=== PATIENT | female | born 1945 | race Caucasian/White ===

== ENCOUNTER 2020-04-17 05:27 | Inpatient (IN) ==
[2020-04-17] MEDS ORDERED: NS 0.9% 1000 ml BAG 1,000 ML IV ONE ×2 (05:59→10:27)
[2020-04-17 07:06] LABS: ABS Lymphocytes 1.4 10^3/ul (1.0-4.8); ABS Monocytes 0.6 10^3/ul (0-0.8); Eosinophil % 0.7 %; Hematocrit 38 % (35-47); Hemoglobin 12.9 g/dL (12.0-16.0); Lymphocyte % 20.5 %; Mean Corpuscular HGB Conc 34 g/dL (31-36); Mean Corpuscular Hemoglobin 31 pg (27-31); Mean Corpuscular Volume 92 fL (80-97); Mean Platelet Volume 7.7 fL (7.4-10.4); Platelet Count 234 10^3/uL (150-450); Red Blood Count 4.14 10^6 /uL (3.70-4.87); Red Cell Distribution Width 14 % (10-15); White Blood Count 6.6 10^3/uL (3.5-10.8)
[2020-04-17 07:30] LABS: Albumin 3.8 g/dL (3.2-5.2); Albumin/Globulin Ratio 1.2 (1-3); BUN/Creatinine Ratio 26.5 (8-20); EGFR African American 101.5 (>60); EGFR Non-African American 83.9 (>60); Globulin 3.1 g/dL (2-4); Potassium 3.8 mmol/L (3.5-5.0); Total Bilirubin 0.4 mg/dL (0.2-1.0); Total Protein 6.9 g/dL (6.4-8.9)
[2020-04-17 07:37] LABS: Troponin I 0.04 ng/mL (<0.03)
[2020-04-17 08:08] LABS: TSH (Thyroid Stimulating Horm) 1.45 mcIU/mL (0.34-5.60)
[2020-04-17 09:03] LABS: Urine Appearance Cloudy; Urine Bilirubin Negative (Negative); Urine Blood 1+ (Negative); Urine Color Yellow; Urine Glucose Negative (Negative); Urine Ketones Negative (Negative); Urine Nitrite Positive (Negative); Urine Protein 1+(30 mg/dL) (Negative); Urine Specific Gravity 1.025 (1.010-1.030); Urine Urobilinogen Negative (Negative)
[2020-04-17 09:08] LABS: Urine Bacteria 3+ (Absent); Urine Red Blood Cell 2+(6-10/hpf) (Absent); Urine Squamous Epithelial Cell Present (Absent); Urine White Blood Cell 1+(6-10/hpf) (Absent)
[2020-04-17 10:26] LABS: Troponin I 0.07 ng/mL (<0.03)
[2020-04-17] MEDS ORDERED: Dextrose 50% Syringe 50 ml 25 GM/50 ML SYRINGE IV PUSH PRN (11:14)
[2020-04-17 11:54] LABS: ABS Eosinophils 0.1 10^3/ul (0-0.6); ABS Lymphocytes 1.5 10^3/ul (1.0-4.8); ABS Monocytes 0.7 10^3/ul (0-0.8); Eosinophil % 1.5 %; Hematocrit 36 % (35-47); Lymphocyte % 24.4 %; Mean Corpuscular HGB Conc 33 g/dL (31-36); Mean Corpuscular Hemoglobin 31 pg (27-31); Mean Corpuscular Volume 93 fL (80-97); Nucleated Red Blood Cells % 0.1; Platelet Count 228 10^3/uL (150-450); Red Blood Count 3.88 10^6 /uL (3.70-4.87); Red Cell Distribution Width 15 % (10-15); White Blood Count 6.1 10^3/uL (3.5-10.8)
[2020-04-17 12:02] LABS: Activated Partial Thrombo Time 41.7 seconds (26.0-38.0); INR 1.03 (0.82-1.09)
[2020-04-17 12:23] LABS: EGFR African American 106.9 (>60); EGFR Non-African American 88.4 (>60)
[2020-04-17] MEDS: Heparin 5000 UNITS/ML 1 mL VIAL SUBCUT SCH ×2 (14:14→22:08)
[2020-04-17 15:18] LABS: Troponin I 0.03 ng/mL (<0.03)
[2020-04-17 18:22] LABS: Troponin I 0.03 ng/mL (<0.03)
[2020-04-17] MEDS: Mometasone 220 MCG MDI INH SCH (19:10)
[2020-04-17] MEDS: Ciprofloxacin 400mg IVPREMIX 400 MG/200 ML BAG IVPB SCH (22:09)
[2020-04-18] MEDS: Heparin 5000 UNITS/ML 1 mL VIAL SUBCUT SCH ×2 (05:39→12:43)
[2020-04-18] MEDS: Mometasone 220 MCG MDI INH SCH ×2 (08:21→19:08)
[2020-04-18] MEDS: Aspirin EC 81 mg TAB.EC (enteric coated) PO SCH (09:48)
[2020-04-18] MEDS: Insulin GLARGINE 100 un/ml 10 ml VIAL SUBCUT SCH (09:50)
[2020-04-18] MEDS: Ciprofloxacin 400mg IVPREMIX 400 MG/200 ML BAG IVPB SCH ×2 (09:52→22:30)
[2020-04-18] MEDS ORDERED: NS 0.9% 1000 ML - LV 1,000 ML/1,000 ML IV.FLUID IV ONE (14:45)
[2020-04-18] MEDS: NS 0.9% 1000 ml BAG 1,000 ML IV SCH (18:34)
[2020-04-18] MEDS: Nystatin TOP POWDER 15 GM BTL TOPICAL SCH (22:30)
[2020-04-19] MEDS: Heparin 5000 UNITS/ML 1 mL VIAL SUBCUT SCH ×4 (00:11→21:26)
[2020-04-19 05:28] LABS: ABS Eosinophils 0.4 10^3/ul (0-0.6); ABS Lymphocytes 1.1 10^3/ul (1.0-4.8); ABS Monocytes 0.5 10^3/ul (0-0.8); Eosinophil % 8.5 %; Hematocrit 36 % (35-47); Hemoglobin 12.1 g/dL (12.0-16.0); Lymphocyte % 22.1 %; Mean Corpuscular HGB Conc 34 g/dL (31-36); Mean Corpuscular Hemoglobin 32 pg (27-31); Mean Corpuscular Volume 93 fL (80-97); Mean Platelet Volume 7.4 fL (7.4-10.4); Platelet Count 209 10^3/uL (150-450); Red Blood Count 3.85 10^6 /uL (3.70-4.87); Red Cell Distribution Width 15 % (10-15); White Blood Count 4.8 10^3/uL (3.5-10.8)
[2020-04-19 05:43] LABS: BUN/Creatinine Ratio 18.1 (8-20); Calcium 8.4 mg/dL (8.6-10.3); EGFR Non-African American 78.5 (>60); Magnesium 1.6 mg/dL (1.9-2.7); Potassium 3.5 mmol/L (3.5-5.0)
[2020-04-19] MEDS ORDERED: Magnesium Sulfate 2 gm BAG 2 GM/50 ML BAG IVPB ONE (08:01)
[2020-04-19] MEDS: Mometasone 220 MCG MDI INH SCH ×2 (08:11→19:12)
[2020-04-19] MEDS: Nystatin TOP POWDER 15 GM BTL TOPICAL SCH ×3 (08:22→21:26)
[2020-04-19] MEDS: Insulin GLARGINE 100 un/ml 10 ml VIAL SUBCUT SCH (08:24)
[2020-04-19] MEDS: Aspirin EC 81 mg TAB.EC (enteric coated) PO SCH (08:26)
[2020-04-19] MEDS: Ciprofloxacin 400mg IVPREMIX 400 MG/200 ML BAG IVPB SCH (08:30)
[2020-04-19] MEDS: NS 0.9% 1000 ml BAG 1,000 ML IV SCH (11:24)
[2020-04-19] MEDS ORDERED: Trimethop/Sulfamethox 800/160 TAB PO SCH (21:00)
[2020-04-19] MEDS: NITROFURANTOIN 100 MG PO SCH (21:25)
[2020-04-20 04:40] LABS: ABS Eosinophils 0.6 10^3/ul (0-0.6); ABS Monocytes 0.5 10^3/ul (0-0.8); Eosinophil % 12.8 %; Hematocrit 35 % (35-47); Lymphocyte % 22.7 %; Mean Corpuscular HGB Conc 34 g/dL (31-36); Mean Corpuscular Hemoglobin 32 pg (27-31); Mean Corpuscular Volume 92 fL (80-97); Mean Platelet Volume 7.9 fL (7.4-10.4); Nucleated Red Blood Cells % 0.1; Platelet Count 203 10^3/uL (150-450); Red Blood Count 3.81 10^6 /uL (3.70-4.87); Red Cell Distribution Width 15 % (10-15); White Blood Count 4.6 10^3/uL (3.5-10.8)
[2020-04-20] MEDS: Heparin 5000 UNITS/ML 1 mL VIAL SUBCUT SCH ×2 (05:48→14:24)
[2020-04-20] MEDS: Mometasone 220 MCG MDI INH SCH ×2 (08:10→19:49)
[2020-04-20] MEDS: NITROFURANTOIN 100 MG PO SCH ×2 (08:50→21:49)
[2020-04-20] MEDS: Aspirin EC 81 mg TAB.EC (enteric coated) PO SCH (08:52)
[2020-04-20] MEDS: Insulin GLARGINE 100 un/ml 10 ml VIAL SUBCUT SCH (08:54)
[2020-04-20] MEDS: Nystatin TOP POWDER 15 GM BTL TOPICAL SCH ×3 (08:59→22:42)
[2020-04-20] MEDS: Enoxaparin 40 MG/0.4 ML SYR SUBCUT SCH (21:49)
[2020-04-21] MEDS: Mometasone 220 MCG MDI INH SCH ×2 (07:34→20:29)
[2020-04-21] MEDS: Aspirin EC 81 mg TAB.EC (enteric coated) PO SCH (10:22)
[2020-04-21] MEDS: NITROFURANTOIN 100 MG PO SCH ×2 (10:23→20:32)
[2020-04-21] MEDS: Nystatin TOP POWDER 15 GM BTL TOPICAL SCH ×3 (10:38→20:33)
[2020-04-21] MEDS: Insulin GLARGINE 100 un/ml 10 ml VIAL SUBCUT SCH (10:38)
[2020-04-21] MEDS ORDERED: Diazepam INJ CARPUJECT 5 MG/ML IV ONE (15:31)
[2020-04-21] MEDS: Enoxaparin 40 MG/0.4 ML SYR SUBCUT SCH (20:33)
[2020-04-22] MEDS: Mometasone 220 MCG MDI INH SCH ×2 (07:06→19:27)
[2020-04-22] MEDS: Nystatin TOP POWDER 15 GM BTL TOPICAL SCH ×3 (08:09→21:52)
[2020-04-22] MEDS: Insulin GLARGINE 100 un/ml 10 ml VIAL SUBCUT SCH (08:09)
[2020-04-22] MEDS: Aspirin EC 81 mg TAB.EC (enteric coated) PO SCH (08:09)
[2020-04-22] MEDS: NITROFURANTOIN 100 MG PO SCH ×2 (08:09→21:51)
[2020-04-22 08:15] LABS: Albumin 3.3 g/dL (3.2-5.2); Calcium 8.7 mg/dL (8.6-10.3); EGFR African American 112.9 (>60); EGFR Non-African American 93.3 (>60); Globulin 3.2 g/dL (2-4); Total Bilirubin 0.3 mg/dL (0.2-1.0); Total Protein 6.5 g/dL (6.4-8.9)
[2020-04-22] MEDS: Enoxaparin 40 MG/0.4 ML SYR SUBCUT SCH (21:51)
[2020-04-23] MEDS: Mometasone 220 MCG MDI INH SCH (07:56)
[2020-04-23] MEDS: NITROFURANTOIN 100 MG PO SCH (08:44)
[2020-04-23] MEDS: Insulin GLARGINE 100 un/ml 10 ml VIAL SUBCUT SCH (08:44)
[2020-04-23] MEDS: Aspirin EC 81 mg TAB.EC (enteric coated) PO SCH (08:45)
[2020-04-23] MEDS: Nystatin TOP POWDER 15 GM BTL TOPICAL SCH (08:46)
[2020-04-23 11:35] VITALS: BP 116/71
== END 2020-04-23 14:30 | disposition home or self-care (01) | DRG 689 ==
LOC: ED 05:27 → MED 05:27 → OBSVTOIN 11:10 → MED 12:32
PROVIDERS: ADMIT Internal Medicine; ATTEND Internal Medicine

== ENCOUNTER 2023-03-31 10:14 | Observation (INO) ==
[2023-03-31 10:53] LABS: ABS Eosinophils 0.1 10^3/uL (0.0-0.5); ABS Lymphocytes 1.4 10^3/uL (1.0-4.8); ABS Monocytes 0.7 10^3/uL (0.0-0.9); ABS Neutrophils 4.4 10^3/uL (1.5-7.6); Hematocrit 36.2 % (35-45); Lymphocyte % 21.3 %; Mean Corpuscular Hemoglobin 30.3 pg (27-33); Mean Corpuscular Hgb Conc 33.1 g/dL (31-36); Mean Corpuscular Volume 91.5 fL (80-97); Mean Platelet Volume 8.1 fL (7.5-11.2); Platelet Count 229 10^3/uL (150-450); Red Blood Count 3.96 10^6/uL (3.63-4.92); Red Cell Distribution Width 14.8 % (12-17); White Blood Count 6.7 10^3/uL (3.8-11.8)
[2023-03-31 10:59] LABS: INR 1.06 (0.88-1.18)
[2023-03-31 11:19] LABS: Albumin 3.8 g/dL (3.2-5.2); Albumin/Globulin Ratio 1.1 (1-3); Calcium 9.3 mg/dL (8.6-10.3); Creatinine, Serum 2.8 mg/dL (0.51-0.95); Globulin 3.4 g/dL (2-4); Magnesium 1.6 mg/dL (1.9-2.7); Total Bilirubin 0.4 mg/dL (0.2-1.0); Total Protein 7.2 g/dL (6.4-8.9); eGFR CKD-EPI 16.7 (>60)
[2023-03-31] MEDS ORDERED: Lactated Ringers 1000 ml BAG 1,000 ML IV ONE (11:47)
[2023-03-31 11:58] LABS: TSH Ultra Thyroid Stim Horm 2.79 mcIU/mL (0.34-5.60)
[2023-03-31 12:21] LABS: High Sensitivity Troponin 1 Hr 14 pg/mL (<15)
[2023-03-31 12:49] LABS: Urine Appearance Cloudy; Urine Bilirubin Negative (Negative); Urine Blood 1+ (Negative); Urine Color Yellow; Urine Glucose Negative (Negative); Urine Ketones Negative (Negative); Urine Nitrite Negative (Negative); Urine Protein 1+(30 mg/dL) (Negative); Urine Specific Gravity 1.013 (1.002-1.030); Urine Urobilinogen Negative (Negative)
[2023-03-31 12:53] LABS: Urine Bacteria 3+ (Absent); Urine Red Blood Cell 2+(6-10/hpf) (Absent); Urine Squamous Epithelial Cell Present (Absent); Urine White Blood Cell 3+(>20/hpf) (Absent)
[2023-03-31 13:38] LABS: C Reactive Protein 12.05 mg/L (<8.01)
[2023-03-31] MEDS ORDERED: Magnesium Sulf 4 GM/100 ML IV 4,000 MG/100 ML BAG IVPB ONE (15:39)
[2023-03-31] MEDS: cefTRIAXone 1 gm/50 mL D5W 1 GM/50 ML BAG IV SCH (17:37)
[2023-03-31] MEDS: Enoxaparin 30 MG/0.3 ML SYR SUBCUT SCH (17:38)
[2023-03-31] MEDS ORDERED: Dextrose 50% Syringe 50 ml 25 GM/50 ML SYRINGE IV PUSH PRN (18:27)
[2023-03-31] MEDS: Nystatin TOP POWDER 15 GM BTL TOPICAL SCH (21:16)
[2023-04-01 05:51] LABS: Hematocrit 33.5 % (35-45); Hemoglobin 11.4 g/dL (11.5-14.3); Mean Corpuscular Hemoglobin 31.3 pg (27-33); Mean Corpuscular Volume 91.8 fL (80-97); Mean Platelet Volume 8.3 fL (7.5-11.2); Platelet Count 195 10^3/uL (150-450); Red Blood Count 3.65 10^6/uL (3.63-4.92); Red Cell Distribution Width 14.4 % (12-17); White Blood Count 4.9 10^3/uL (3.8-11.8)
[2023-04-01 06:13] LABS: Creatinine, Serum 1.36 mg/dL (0.51-0.95); Magnesium 2.5 mg/dL (1.9-2.7); Potassium 4.1 mmol/L (3.5-5.0); eGFR CKD-EPI 39.6 (>60)
[2023-04-01] MEDS: Nystatin TOP POWDER 15 GM BTL TOPICAL SCH ×3 (08:17→19:56)
[2023-04-01] MEDS: cefTRIAXone 1 gm/50 mL D5W 1 GM/50 ML BAG IV SCH (15:58)
[2023-04-01] MEDS: Enoxaparin 30 MG/0.3 ML SYR SUBCUT SCH (16:43)
[2023-04-02 05:57] LABS: Calcium 9.5 mg/dL (8.6-10.3); Creatinine, Serum 0.99 mg/dL (0.51-0.95); Potassium 4.5 mmol/L (3.5-5.0)
[2023-04-02] MEDS: Nystatin TOP POWDER 15 GM BTL TOPICAL SCH ×2 (07:15→14:53)
[2023-04-02 13:54] VITALS: BP 101/57
== END 2023-04-02 15:05 | disposition home or self-care (01) ==
LOC: EDHOLD 10:14 → ED 10:14 → SUATTDRO 13:59 → MED 15:36
PROVIDERS: ADMIT Internal Medicine; ATTEND Internal Medicine

== ENCOUNTER 2023-08-09 18:46 | Inpatient (IN) ==
[2023-08-09 20:40] LABS: Albumin 3.6 g/dL (3.2-5.2); Anion Gap 5 mmol/L (2-16); CO2 Carbon Dioxide 28 mmol/L (22-32); Calcium 9.5 mg/dL (8.6-10.3); Chloride 106 mmol/L (101-111); Potassium 4.5 mmol/L (3.5-5.0); Sodium 139 mmol/L (135-145); Total Bilirubin 0.3 mg/dL (0.2-1.0)
[2023-08-09 20:42] LABS: ABS Eosinophils 0.1 10^3/uL (0.0-0.5); ABS Lymphocytes 1.1 10^3/uL (1.0-4.8); ABS Monocytes 0.5 10^3/uL (0.0-0.9); ABS Neutrophils 5.9 10^3/uL (1.5-7.6); ABS Nucleated RBC 0.01 10^3/ul; Eosinophil % 1.2 %; Hematocrit 35.2 % (35-45); Hemoglobin 11.8 g/dL (11.5-14.3); Lymphocyte % 14.6 %; Mean Corpuscular Hemoglobin 30.6 pg (27-33); Mean Corpuscular Hgb Conc 33.6 g/dL (31-36); Mean Platelet Volume 8.2 fL (7.5-11.2); Nucleated Red Blood Cells % 0.1 %/100WBC (0.0-0.8); Platelet Count 225 10^3/uL (150-450); Red Blood Count 3.87 10^6/uL (3.63-4.92); Red Cell Distribution Width 14.7 % (12-17); White Blood Count 7.7 10^3/uL (3.8-11.8)
[2023-08-09 20:46] LABS: ALT 14 U/L (7-52); AST 18 U/L (13-39); Albumin/Globulin Ratio 1.1 (1-3); Alkaline Phosphatase 92 U/L (35-149); Blood Urea Nitrogen 23 mg/dL (6-24); Creatinine, Serum 0.88 mg/dL (0.51-0.95); Globulin 3.2 g/dL (2-4); Glucose 139 mg/dL (70-100); Total Protein 6.8 g/dL (6.4-8.9); eGFR CKD-EPI 66.4 (>60)
[2023-08-09 20:51] LABS: High Sens Troponin Baseline 58 pg/mL (<15)
[2023-08-09 21:06] LABS: Alcohol, S < 13 mg/dL (<13)
[2023-08-09 22:42] LABS: High Sensitivity Troponin 1 Hr 76 pg/mL (<15)
[2023-08-10 01:10] LABS: C Reactive Protein 13.71 mg/L (<8.01); Creatine Kinase 55 U/L (10-223)
[2023-08-10 01:53] LABS: High Sensitivity Troponin 3 Hr 86 pg/mL (<15)
[2023-08-10 01:57] LABS: Erythrocyte Sed Rate 49 mm/Hr (0-29)
[2023-08-10] MEDS ORDERED: Iodixanol (CONTRAST) 320 MG/ML 100 ML SDV IV SCH (02:33)
[2023-08-10] MEDS: Heparin 5000 UNITS/ML 1 mL VIAL IV SCH (03:42)
[2023-08-10] MEDS: Heparin DRIP 25,000 UNITS BAG 25,000 UNITS/500 ML BAG IV SCH (03:46)
[2023-08-10 05:35] LABS: ABS Eosinophils 0.3 10^3/uL (0.0-0.5); ABS Monocytes 0.5 10^3/uL (0.0-0.9); ABS Neutrophils 3.9 10^3/uL (1.5-7.6); ABS Nucleated RBC 0.01 10^3/ul; Eosinophil % 5.7 %; Hematocrit 33.4 % (35-45); Hemoglobin 11.2 g/dL (11.5-14.3); Lymphocyte % 16.9 %; Mean Corpuscular Hemoglobin 30.3 pg (27-33); Mean Corpuscular Hgb Conc 33.5 g/dL (31-36); Mean Corpuscular Volume 90.6 fL (80-97); Mean Platelet Volume 7.7 fL (7.5-11.2); Nucleated Red Blood Cells % 0.1 %/100WBC (0.0-0.8); Platelet Count 212 10^3/uL (150-450); Red Blood Count 3.69 10^6/uL (3.63-4.92); Red Cell Distribution Width 14.5 % (12-17); White Blood Count 5.7 10^3/uL (3.8-11.8)
[2023-08-10] MEDS ORDERED: cefTRIAXone 1 gm/50 mL D5W 1 GM/50 ML BAG IV ONE (05:55)
[2023-08-10] MEDS ORDERED: cefTRIAXone 2 gm/50 mL D5W 2 GM/50 ML BAG IV SCH (06:00)
[2023-08-10] MEDS ORDERED: cefTRIAXone 1 gm/50 mL D5W 1 GM/50 ML BAG IV SCH (06:00)
[2023-08-10 07:22] LABS: Calcium 8.7 mg/dL (8.6-10.3); Magnesium 1.6 mg/dL (1.9-2.7); Potassium 3.8 mmol/L (3.5-5.0)
[2023-08-10 07:28] LABS: Creatinine, Serum 0.74 mg/dL (0.51-0.95); eGFR CKD-EPI 81.7 (>60)
[2023-08-10] MEDS ORDERED: Magnesium Sulfate 2 gm BAG 2 GM/50 ML BAG IVPB ONE (07:39)
[2023-08-10] MEDS: metroNIDAZOLE IV 500 MG/100ML 500 MG/100 ML BAG IVPB SCH ×3 (07:43→22:07)
[2023-08-10] MEDS: Aspirin EC 81 mg TAB.EC (enteric coated) PO SCH (07:44)
[2023-08-10] MEDS ORDERED: Dextrose 50% Syringe 50 ml 25 GM/50 ML SYRINGE IV PUSH PRN ×2 (11:07→21:06)
[2023-08-10] MEDS ORDERED: Midazolam 2 mg/2 ml VIAL 1 mg/ml 2 ml VIAL (2 mg) ONE (15:16)
[2023-08-10] MEDS ORDERED: Lidocaine 2% PF 5 ML VIAL ONE (15:16)
[2023-08-10] MEDS ORDERED: Propofol 10 MG/ML 20 ML BTL ONE ×2 (15:16→15:57)
[2023-08-10] MEDS ORDERED: Phenylephrine 40 mcg/mL 10mL (400mcg) SYRINGE ONE (15:17)
[2023-08-11] MEDS ORDERED: NS 0.9% 500 ml BAG 500 ML IV ONE (03:41)
[2023-08-11] MEDS: cefTRIAXone 1 gm/50 mL D5W 1 GM/50 ML BAG IV SCH (05:09)
[2023-08-11] MEDS: metroNIDAZOLE IV 500 MG/100ML 500 MG/100 ML BAG IVPB SCH ×3 (06:09→23:50)
[2023-08-11 06:21] LABS: ABS Eosinophils 0.5 10^3/uL (0.0-0.5); ABS Lymphocytes 0.8 10^3/uL (1.0-4.8); ABS Monocytes 0.5 10^3/uL (0.0-0.9); Eosinophil % 9.7 %; Hematocrit 32.7 % (35-45); Lymphocyte % 17.4 %; Mean Corpuscular Hemoglobin 30.8 pg (27-33); Mean Corpuscular Hgb Conc 33.6 g/dL (31-36); Mean Corpuscular Volume 91.5 fL (80-97); Mean Platelet Volume 8.3 fL (7.5-11.2); Platelet Count 189 10^3/uL (150-450); Red Blood Count 3.57 10^6/uL (3.63-4.92); Red Cell Distribution Width 14.6 % (12-17); White Blood Count 4.8 10^3/uL (3.8-11.8)
[2023-08-11 06:43] LABS: Calcium 8.2 mg/dL (8.6-10.3); Creatinine, Serum 0.77 mg/dL (0.51-0.95); Magnesium 1.8 mg/dL (1.9-2.7); Phosphorus 3.1 mg/dL (2.5-5.0); Potassium 3.8 mmol/L (3.5-5.0); eGFR CKD-EPI 77.9 (>60)
[2023-08-11] MEDS ORDERED: Magnesium Sulfate 2 gm BAG 2 GM/50 ML BAG IVPB ONE (07:48)
[2023-08-11] MEDS ORDERED: Polyethylene Glycol 3350 17 GM PACKET PO PRN (08:33)
[2023-08-11] MEDS: Aspirin EC 81 mg TAB.EC (enteric coated) PO SCH (09:17)
[2023-08-11] MEDS: Lidocaine PATCH 4% TOPICAL PRN (18:05)
[2023-08-11] MEDS: Nystatin TOP POWDER 15 GM BTL TOPICAL SCH (23:49)
[2023-08-12] MEDS: Heparin 5000 UNITS/ML 1 mL VIAL IV SCH (00:41)
[2023-08-12] MEDS: Heparin DRIP 25,000 UNITS BAG 25,000 UNITS/500 ML BAG IV SCH ×2 (00:45→06:44)
[2023-08-12 02:53] LABS: Urine Appearance Clear; Urine Bilirubin Negative (Negative); Urine Blood Negative (Negative); Urine Color Yellow; Urine Glucose Negative (Negative); Urine Ketones Negative (Negative); Urine Nitrite Negative (Negative); Urine Protein Negative (Negative); Urine Specific Gravity 1.011 (1.002-1.030); Urine Urobilinogen Negative (Negative)
[2023-08-12] MEDS: cefTRIAXone 1 gm/50 mL D5W 1 GM/50 ML BAG IV SCH (05:34)
[2023-08-12] MEDS: metroNIDAZOLE IV 500 MG/100ML 500 MG/100 ML BAG IVPB SCH ×3 (06:19→21:15)
[2023-08-12 06:47] LABS: ABS Eosinophils 0.6 10^3/uL (0.0-0.5); ABS Lymphocytes 0.7 10^3/uL (1.0-4.8); ABS Monocytes 0.5 10^3/uL (0.0-0.9); ABS Neutrophils 3.7 10^3/uL (1.5-7.6); Eosinophil % 10.3 %; Hematocrit 33.1 % (35-45); Hemoglobin 11.2 g/dL (11.5-14.3); Lymphocyte % 13.2 %; Mean Corpuscular Hemoglobin 30.7 pg (27-33); Mean Corpuscular Hgb Conc 33.7 g/dL (31-36); Mean Corpuscular Volume 91.1 fL (80-97); Mean Platelet Volume 7.7 fL (7.5-11.2); Platelet Count 189 10^3/uL (150-450); Red Blood Count 3.64 10^6/uL (3.63-4.92); Red Cell Distribution Width 14.8 % (12-17); White Blood Count 5.5 10^3/uL (3.8-11.8)
[2023-08-12 07:08] LABS: Calcium 8.4 mg/dL (8.6-10.3); Creatinine, Serum 0.78 mg/dL (0.51-0.95); Magnesium 1.9 mg/dL (1.9-2.7); Phosphorus 3.1 mg/dL (2.5-5.0); Potassium 4.1 mmol/L (3.5-5.0); eGFR CKD-EPI 76.7 (>60)
[2023-08-12] MEDS: Nystatin TOP POWDER 15 GM BTL TOPICAL SCH ×2 (08:56→22:13)
[2023-08-12] MEDS: Polyethylene Glycol 3350 17 GM PACKET PO SCH (09:04)
[2023-08-13] MEDS: cefTRIAXone 1 gm/50 mL D5W 1 GM/50 ML BAG IV SCH (05:08)
[2023-08-13 05:39] LABS: ABS Eosinophils 0.5 10^3/uL (0.0-0.5); ABS Lymphocytes 0.9 10^3/uL (1.0-4.8); ABS Monocytes 0.5 10^3/uL (0.0-0.9); ABS Neutrophils 3.5 10^3/uL (1.5-7.6); Hematocrit 33.7 % (35-45); Hemoglobin 11.3 g/dL (11.5-14.3); Lymphocyte % 16.6 %; Mean Corpuscular Hemoglobin 30.4 pg (27-33); Mean Corpuscular Hgb Conc 33.5 g/dL (31-36); Mean Corpuscular Volume 90.6 fL (80-97); Mean Platelet Volume 7.7 fL (7.5-11.2); Platelet Count 212 10^3/uL (150-450); Red Blood Count 3.72 10^6/uL (3.63-4.92); Red Cell Distribution Width 14.7 % (12-17); White Blood Count 5.4 10^3/uL (3.8-11.8)
[2023-08-13 06:01] LABS: Calcium 8.7 mg/dL (8.6-10.3); Creatinine, Serum 0.7 mg/dL (0.51-0.95); Magnesium 1.7 mg/dL (1.9-2.7); Phosphorus 3.1 mg/dL (2.5-5.0); Potassium 4.5 mmol/L (3.5-5.0); eGFR CKD-EPI 87.4 (>60)
[2023-08-13] MEDS: metroNIDAZOLE IV 500 MG/100ML 500 MG/100 ML BAG IVPB SCH ×3 (06:19→21:03)
[2023-08-13] MEDS: Nystatin TOP POWDER 15 GM BTL TOPICAL SCH ×2 (08:56→20:58)
[2023-08-13] MEDS: Polyethylene Glycol 3350 17 GM PACKET PO SCH (09:59)
[2023-08-13] MEDS ORDERED: Magnesium Sulfate 2 gm BAG 2 GM/50 ML BAG IVPB ONE (11:20)
[2023-08-13] MEDS: Lidocaine PATCH 4% TOPICAL PRN (17:19)
[2023-08-14] MEDS: cefTRIAXone 1 gm/50 mL D5W 1 GM/50 ML BAG IV SCH (05:29)
[2023-08-14 05:31] LABS: ABS Eosinophils 0.5 10^3/uL (0.0-0.5); ABS Lymphocytes 1.1 10^3/uL (1.0-4.8); ABS Monocytes 0.5 10^3/uL (0.0-0.9); ABS Neutrophils 3.2 10^3/uL (1.5-7.6); Eosinophil % 9.2 %; Hematocrit 31.6 % (35-45); Hemoglobin 10.7 g/dL (11.5-14.3); Lymphocyte % 20.6 %; Mean Corpuscular Hemoglobin 30.8 pg (27-33); Mean Corpuscular Hgb Conc 33.9 g/dL (31-36); Mean Corpuscular Volume 90.8 fL (80-97); Mean Platelet Volume 7.8 fL (7.5-11.2); Platelet Count 209 10^3/uL (150-450); Red Blood Count 3.48 10^6/uL (3.63-4.92); Red Cell Distribution Width 14.7 % (12-17); White Blood Count 5.4 10^3/uL (3.8-11.8)
[2023-08-14 06:00] LABS: Calcium 8.6 mg/dL (8.6-10.3); Creatinine, Serum 0.77 mg/dL (0.51-0.95); Magnesium 1.9 mg/dL (1.9-2.7); Potassium 4.4 mmol/L (3.5-5.0); eGFR CKD-EPI 77.9 (>60)
[2023-08-14] MEDS: metroNIDAZOLE IV 500 MG/100ML 500 MG/100 ML BAG IVPB SCH ×3 (06:18→21:06)
[2023-08-14] MEDS: Nystatin TOP POWDER 15 GM BTL TOPICAL SCH ×2 (09:13→21:06)
[2023-08-14] MEDS: Polyethylene Glycol 3350 17 GM PACKET PO SCH (09:14)
[2023-08-14 09:48] LABS: Ferritin 80.7 ng/mL (11-307)
[2023-08-14 09:52] LABS: Folate 5.76 ng/mL (5.90-24.80)
[2023-08-14 10:26] LABS: INR 1.07 (0.83-1.13)
[2023-08-14] MEDS ORDERED: Heparin 2 UNITS/ML 1000 mls 1,000 ML IV ONE (12:06)
[2023-08-15] MEDS: cefTRIAXone 1 gm/50 mL D5W 1 GM/50 ML BAG IV SCH (05:17)
[2023-08-15 06:04] LABS: ABS Eosinophils 0.4 10^3/uL (0.0-0.5); ABS Lymphocytes 0.8 10^3/uL (1.0-4.8); ABS Monocytes 0.5 10^3/uL (0.0-0.9); ABS Neutrophils 3.1 10^3/uL (1.5-7.6); ABS Nucleated RBC 0.01 10^3/ul; Eosinophil % 7.8 %; Hematocrit 33.2 % (35-45); Hemoglobin 11.2 g/dL (11.5-14.3); Lymphocyte % 16.8 %; Mean Corpuscular Hemoglobin 30.5 pg (27-33); Mean Corpuscular Hgb Conc 33.6 g/dL (31-36); Mean Corpuscular Volume 90.8 fL (80-97); Mean Platelet Volume 7.9 fL (7.5-11.2); Nucleated Red Blood Cells % 0.2 %/100WBC (0.0-0.8); Platelet Count 216 10^3/uL (150-450); Red Blood Count 3.66 10^6/uL (3.63-4.92); White Blood Count 4.9 10^3/uL (3.8-11.8)
[2023-08-15 06:31] LABS: Calcium 8.9 mg/dL (8.6-10.3); Creatinine, Serum 0.89 mg/dL (0.51-0.95); Magnesium 1.7 mg/dL (1.9-2.7); Potassium 4.4 mmol/L (3.5-5.0); eGFR CKD-EPI 65.5 (>60)
[2023-08-15] MEDS ORDERED: Magnesium Sulfate 2 gm BAG 2 GM/50 ML BAG IVPB ONE (06:58)
[2023-08-15] MEDS: metroNIDAZOLE IV 500 MG/100ML 500 MG/100 ML BAG IVPB SCH (07:15)
[2023-08-15] MEDS: Lidocaine PATCH 4% TOPICAL PRN (07:39)
[2023-08-15] MEDS: Polyethylene Glycol 3350 17 GM PACKET PO SCH (08:09)
[2023-08-15] MEDS: Nystatin TOP POWDER 15 GM BTL TOPICAL SCH (08:11)
[2023-08-15] MEDS ORDERED: Senna TAB 8.6 mg TAB PO SCH (10:00)
[2023-08-15 15:06] VITALS: BP 129/58
== END 2023-08-15 17:00 | DRG 175 ==
LOC: EDHOLD 18:46 → ED 18:46 → SUATTDRO 08-10 00:40 → SSU 08-10 01:53 → MEDTELE 08-10 02:14 → SUATTDRO 08-12 12:25
PROVIDERS: ADMIT Student in an Organized Health Care Education/Training Program; ATTEND Internal Medicine
PROC: O.CATEE (2023-08-10 12:30)

== ENCOUNTER 2024-08-03 15:58 | Inpatient (IN) ==
[2024-08-03] MEDS: Lactated Ringers 1000 ml BAG 1,000 ML IV ONE (16:23)
[2024-08-03 17:25] LABS: Venous Bicarbonate HCO3 29.3 mmol/L (24-28)
[2024-08-03 17:30] LABS: ABS Monocytes 0.4 10^3/uL (0.0-0.9); ABS Neutrophils 5.9 10^3/uL (1.5-7.6); Eosinophil % 0.3 %; Hematocrit 39.4 % (35-45); Hemoglobin 12.1 g/dL (11.5-14.3); Lymphocyte % 13.6 %; Mean Corpuscular Hgb Conc 30.8 g/dL (31-36); Mean Corpuscular Volume 94.1 fL (80-97); Mean Platelet Volume 10.4 fL (7.5-11.2); Platelet Count 178 10^3/uL (150-450); Red Blood Count 4.18 10^6/uL (3.63-4.92); Red Cell Distribution Width 17.9 % (12-17); White Blood Count 7.3 10^3/uL (3.8-11.8)
[2024-08-03 17:57] LABS: Albumin 3.4 g/dL (3.2-5.2); C Reactive Protein 143.01 mg/L (<8.01); Calcium 9.2 mg/dL (8.6-10.3); Creatinine, Serum 1.33 mg/dL (0.51-0.95); Globulin 3.3 g/dL (2-4); Magnesium 2.2 mg/dL (1.9-2.7); Potassium 4.6 mmol/L (3.5-5.0); Total Bilirubin 0.4 mg/dL (0.2-1.0); Total Protein 6.7 g/dL (6.4-8.9); eGFR CKD-EPI 40.2 (>60)
[2024-08-03 18:09] LABS: Urine Appearance Turbid; Urine Bacteria 3+ /HPF (Absent); Urine Bilirubin Negative (Negative); Urine Blood Negative (Negative); Urine Color Yellow; Urine Glucose 4+ (>=1000 mg/dL) (Negative); Urine Ketones Negative (Negative); Urine Nitrite Negative (Negative); Urine Protein Trace (Negative); Urine Red Blood Cell 1+(3-5/hpf) /HPF (0-Trace); Urine Squamous Epithelial Cell Present /HPF (Absent); Urine Urobilinogen Negative (Negative); Urine White Blood Cell 1+(6-10/hpf) /HPF (0-Trace)
[2024-08-03 18:29] LABS: High Sensitivity Troponin 1 Hr 94 pg/mL (<15)
[2024-08-03] MEDS ORDERED: Dextrose 50% Syringe 50 ml 25 GM/50 ML SYRINGE IV PUSH PRN (20:29)
[2024-08-03] MEDS: cefTRIAXone 1 gm/50 mL D5W 1 GM/50 ML BAG IV SCH (21:58)
[2024-08-03] MEDS: NS 0.9% 1000 ml BAG 1,000 ML IV SCH (21:58)
[2024-08-03 22:37] LABS: TSH Ultra Thyroid Stim Horm 1.32 mcIU/mL (0.34-5.60)
[2024-08-03 22:48] LABS: Folate 13.78 ng/mL (5.90-24.80)
[2024-08-03 22:53] LABS: Vitamin D Total 25(OH) 29.5 ng/mL (20-50)
[2024-08-03] MEDS: Azithromycin 500 mg/250 ml NS 500 MG/250 ML BAG IVPB SCH (23:20)
[2024-08-03] MEDS: Heparin 5000 UNITS/ML 1 mL VIAL SUBCUT SCH (23:21)
[2024-08-04 00:49] LABS: Activated Partial Thrombo Time 33.6 seconds (26.0-38.0); INR 1.05 (0.85-1.14)
[2024-08-04 01:06] LABS: Anion Gap 10 mmol/L (2-16); Blood Urea Nitrogen 69 mg/dL (6-24); CO2 Carbon Dioxide 26 mmol/L (22-32); Calcium 8.8 mg/dL (8.6-10.3); Chloride 125 mmol/L (101-111); Creatinine, Serum 1.26 mg/dL (0.51-0.95); Glucose 366 mg/dL (70-100); Sodium 161 mmol/L (135-145); eGFR CKD-EPI 42.9 (>60)
[2024-08-04] MEDS: NS 0.45% 1000 ml BAG 1,000 ML IV SCH ×2 (01:46→02:06)
[2024-08-04 01:53] LABS: Calcium 8.9 mg/dL (8.6-10.3); Creatinine, Serum 1.31 mg/dL (0.51-0.95); eGFR CKD-EPI 40.9 (>60)
[2024-08-04 04:16] LABS: Calcium 9.1 mg/dL (8.6-10.3); Creatinine, Serum 1.34 mg/dL (0.51-0.95); Potassium 4.1 mmol/L (3.5-5.0); eGFR CKD-EPI 39.8 (>60)
[2024-08-04] MEDS: Acetaminophen IV 1 GM/100ML 1,000 MG/100 ML BAG IV PRN (04:51)
[2024-08-04 06:33] LABS: ABS Lymphocytes 1.4 10^3/uL (1.0-4.8); ABS Monocytes 0.5 10^3/uL (0.0-0.9); ABS Neutrophils 5.6 10^3/uL (1.5-7.6); ABS Nucleated RBC 0.01 10^3/ul; Eosinophil % 0.5 %; Hematocrit 38.2 % (35-45); Hemoglobin 12.1 g/dL (11.5-14.3); Lymphocyte % 18.9 %; Mean Corpuscular Hemoglobin 29.6 pg (27-33); Mean Corpuscular Hgb Conc 31.7 g/dL (31-36); Mean Corpuscular Volume 93.3 fL (80-97); Mean Platelet Volume 9.8 fL (7.5-11.2); Nucleated Red Blood Cells % 0.1 %/100WBC (0.0-0.8); Platelet Count 154 10^3/uL (150-450); Red Blood Count 4.09 10^6/uL (3.63-4.92); Red Cell Distribution Width 17.8 % (12-17); White Blood Count 7.6 10^3/uL (3.8-11.8)
[2024-08-04 07:40] LABS: Calcium 8.7 mg/dL (8.6-10.3); Creatinine, Serum 1.19 mg/dL (0.51-0.95); Magnesium 2.1 mg/dL (1.9-2.7); eGFR CKD-EPI 45.9 (>60)
[2024-08-04] MEDS: D5W 1000 ml BAG 1,000 ML IV SCH (08:43)
[2024-08-04] MEDS: Insulin GLARGINE 100 un/ml 10 ml VIAL SUBCUT ONE ×2 (11:58→17:06)
[2024-08-04] MEDS ORDERED: Metoprolol Tartrate 5 mg VIAL 5 ml VIAL (1 mg/ml) IV PRN (14:05)
[2024-08-04] MEDS: Metoprolol Tartrate 5 mg VIAL 5 ml VIAL (1 mg/ml) IV ONE (14:31)
[2024-08-04 15:14] LABS: Calcium 8.7 mg/dL (8.6-10.3); Creatinine, Serum 1.06 mg/dL (0.51-0.95); Potassium 4.1 mmol/L (3.5-5.0); eGFR CKD-EPI 52.8 (>60)
[2024-08-04] MEDS: Digoxin IV 0.5 MG/2 ML AMP (0.25 MG/ML) IV SLOW PU ONE (15:27)
[2024-08-04] MEDS: Pantoprazole VIAL 40 MG VIAL IV SCH (17:06)
[2024-08-04] MEDS: Mometasone 220 MCG MDI INH SCH (19:45)
[2024-08-04] MEDS: Dexamethasone IV 4 MG/ML VIAL 1 ml VIAL IV SLOW PU SCH (22:07)
[2024-08-04 22:42] LABS: Calcium 8.5 mg/dL (8.6-10.3); Creatinine, Serum 0.99 mg/dL (0.51-0.95); Potassium 3.6 mmol/L (3.5-5.0); eGFR CKD-EPI 57.3 (>60)
[2024-08-05 06:39] LABS: Hematocrit 35.6 % (35-45); Hemoglobin 11.4 g/dL (11.5-14.3); Mean Corpuscular Hemoglobin 29.8 pg (27-33); Mean Corpuscular Volume 93.1 fL (80-97); Mean Platelet Volume 10.9 fL (7.5-11.2); Platelet Count 130 10^3/uL (150-450); Red Blood Count 3.83 10^6/uL (3.63-4.92); Red Cell Distribution Width 17.5 % (12-17); White Blood Count 5.9 10^3/uL (3.8-11.8)
[2024-08-05 07:05] LABS: Calcium 8.2 mg/dL (8.6-10.3); Creatinine, Serum 0.83 mg/dL (0.51-0.95); Potassium 4.1 mmol/L (3.5-5.0); eGFR CKD-EPI 70.8 (>60)
[2024-08-05] MEDS: Insulin GLARGINE 100 un/ml 10 ml VIAL SUBCUT SCH (09:03)
[2024-08-05] MEDS: Aspirin EC 81 mg TAB.EC (enteric coated) PO SCH (09:04)
[2024-08-05] MEDS: Insulin GLARGINE 100 un/ml 10 ml VIAL SUBCUT ONE (10:25)
[2024-08-05] MEDS: Iodixanol 320 (CONTRAST) 100 ML SDV IV ONE (16:39)
[2024-08-06] MEDS: metroNIDAZOLE IV 500 MG/100ML 500 MG/100 ML BAG IVPB SCH (08:51)
[2024-08-06] MEDS ORDERED: Insulin GLARGINE 100 un/ml 10 ml VIAL SUBCUT SCH (09:00)
[2024-08-06 09:38] LABS: ABS Lymphocytes 0.7 10^3/uL (1.0-4.8); ABS Monocytes 0.1 10^3/uL (0.0-0.9); ABS Neutrophils 5.4 10^3/uL (1.5-7.6); ABS Nucleated RBC 0.01 10^3/ul; Hematocrit 37.4 % (35-45); Hemoglobin 12.1 g/dL (11.5-14.3); Lymphocyte % 11.1 %; Mean Corpuscular Hemoglobin 29.9 pg (27-33); Mean Corpuscular Hgb Conc 32.4 g/dL (31-36); Mean Corpuscular Volume 92.2 fL (80-97); Mean Platelet Volume 10.3 fL (7.5-11.2); Nucleated Red Blood Cells % 0.2 %/100WBC (0.0-0.8); Platelet Count 137 10^3/uL (150-450); Red Blood Count 4.05 10^6/uL (3.63-4.92); Red Cell Distribution Width 16.9 % (12-17); White Blood Count 6.3 10^3/uL (3.8-11.8)
[2024-08-06] MEDS: Insulin GLARGINE 100 un/ml 10 ml VIAL SUBCUT SCH (10:48)
[2024-08-06 10:57] LABS: ALT 41 U/L (7-52); Albumin 2.9 g/dL (3.2-5.2); Albumin/Globulin Ratio 0.9 (1-3); Alkaline Phosphatase 69 U/L (35-149); Anion Gap 9 mmol/L (2-16); Blood Urea Nitrogen 31 mg/dL (6-24); CO2 Carbon Dioxide 25 mmol/L (22-32); Calcium 7.8 mg/dL (8.6-10.3); Chloride 111 mmol/L (101-111); Globulin 3.3 g/dL (2-4); Glucose 305 mg/dL (70-100); Sodium 145 mmol/L (135-145); Total Bilirubin 0.4 mg/dL (0.2-1.0); Total Protein 6.2 g/dL (6.4-8.9); eGFR CKD-EPI 86.8 (>60)
[2024-08-06 10:59] LABS: C Reactive Protein 23.89 mg/L (<8.01)
[2024-08-06 12:13] LABS: Magnesium 1.8 mg/dL (1.9-2.7); Phosphorus 3.4 mg/dL (2.5-5.0); Potassium Redraw 4.3 mmol/L (3.5-5.0)
[2024-08-07 07:39] LABS: Hematocrit 36.5 % (35-45); Hemoglobin 11.7 g/dL (11.5-14.3); Mean Corpuscular Hemoglobin 29.6 pg (27-33); Mean Corpuscular Hgb Conc 31.9 g/dL (31-36); Mean Corpuscular Volume 92.7 fL (80-97); Mean Platelet Volume 10.3 fL (7.5-11.2); Platelet Count 144 10^3/uL (150-450); Red Blood Count 3.93 10^6/uL (3.63-4.92); White Blood Count 5.8 10^3/uL (3.8-11.8)
[2024-08-07 08:15] LABS: ALT 41 U/L (7-52); Albumin 2.9 g/dL (3.2-5.2); Alkaline Phosphatase 68 U/L (35-149); Anion Gap 10 mmol/L (2-16); Blood Urea Nitrogen 35 mg/dL (6-24); CO2 Carbon Dioxide 19 mmol/L (22-32); Calcium 8.1 mg/dL (8.6-10.3); Chloride 116 mmol/L (101-111); Creatinine, Serum 0.79 mg/dL (0.51-0.95); Globulin 2.9 g/dL (2-4); Glucose 291 mg/dL (70-100); Sodium 145 mmol/L (135-145); Total Bilirubin 0.4 mg/dL (0.2-1.0); Total Protein 5.8 g/dL (6.4-8.9); eGFR CKD-EPI 75.1 (>60)
[2024-08-07] MEDS: Nystatin TOP POWDER 15 GM BTL TOPICAL SCH (09:48)
[2024-08-07 09:55] LABS: ABS Lymphocytes 0.7 10^3/uL (1.0-4.8); ABS Monocytes 0.2 10^3/uL (0.0-0.9); ABS Neutrophils 4.9 10^3/uL (1.5-7.6); ABS Nucleated RBC 0.02 10^3/ul; Nucleated Red Blood Cells % 0.3 %/100WBC (0.0-0.8)
[2024-08-07 12:41] LABS: Potassium, Whole Blood 4.3 mmol/L (3.4-4.5)
[2024-08-08 07:13] LABS: Albumin/Globulin Ratio 1.1 (1-3); Calcium 8.2 mg/dL (8.6-10.3); Creatinine, Serum 0.78 mg/dL (0.51-0.95); Globulin 2.8 g/dL (2-4); Potassium 4.7 mmol/L (3.5-5.0); Total Bilirubin 0.3 mg/dL (0.2-1.0); Total Protein 5.8 g/dL (6.4-8.9); eGFR CKD-EPI 76.3 (>60)
[2024-08-08] MEDS: Magnesium Hydroxide LIQ 30 ML UDC PO PRN (09:22)
[2024-08-08] MEDS: Polyethylene Glycol 3350 17 GM PACKET PO PRN (09:22)
[2024-08-08] MEDS: Senna TAB 8.6 mg TAB PO PRN (09:23)
[2024-08-08] MEDS: Insulin GLARGINE 100 un/ml 10 ml VIAL SUBCUT SCH (09:25)
[2024-08-08 17:26] LABS: Magnesium 2.2 mg/dL (1.9-2.7)
[2024-08-08 17:42] LABS: TSH Ultra Thyroid Stim Horm 0.94 mcIU/mL (0.34-5.60)
[2024-08-09 07:43] LABS: Albumin/Globulin Ratio 1.1 (1-3); Calcium 8.6 mg/dL (8.6-10.3); Creatinine, Serum 0.78 mg/dL (0.51-0.95); Globulin 2.8 g/dL (2-4); Magnesium 2.6 mg/dL (1.9-2.7); Potassium 5.1 mmol/L (3.5-5.0); Total Bilirubin 0.3 mg/dL (0.2-1.0); Total Protein 5.8 g/dL (6.4-8.9); eGFR CKD-EPI 76.3 (>60)
[2024-08-09 08:54] LABS: TSH Ultra Thyroid Stim Horm 1.14 mcIU/mL (0.34-5.60)
[2024-08-09 09:59] LABS: High Sensitivity Troponin 1 Hr 17 pg/mL (<15)
[2024-08-10 06:55] LABS: Hemoglobin 12.7 g/dL (11.5-14.3); Mean Corpuscular Hemoglobin 29.9 pg (27-33); Mean Corpuscular Hgb Conc 32.4 g/dL (31-36); Mean Corpuscular Volume 92.2 fL (80-97); Mean Platelet Volume 10.5 fL (7.5-11.2); Platelet Count 173 10^3/uL (150-450); Red Blood Count 4.23 10^6/uL (3.63-4.92); Red Cell Distribution Width 17.3 % (12-17)
[2024-08-10 07:54] LABS: Albumin 3.1 g/dL (3.2-5.2); Albumin/Globulin Ratio 1.1 (1-3); Calcium 8.6 mg/dL (8.6-10.3); Creatinine, Serum 0.8 mg/dL (0.51-0.95); Globulin 2.9 g/dL (2-4); Potassium 5.2 mmol/L (3.5-5.0); Total Bilirubin 0.3 mg/dL (0.2-1.0)
[2024-08-10 08:42] LABS: ABS Basophils 0.1 10^3/uL (0.0-0.1); ABS Eosinophils 0.1 10^3/uL (0.0-0.5); ABS Lymphocytes 1.4 10^3/uL (1.0-4.8); ABS Monocytes 0.6 10^3/uL (0.0-0.9); ABS Neutrophils 6.9 10^3/uL (1.5-7.6); ABS Nucleated RBC 0.05 10^3/ul; Eosinophil % 0.9 %; Lymphocyte % 15.6 %; Nucleated Red Blood Cells % 0.5 %/100WBC (0.0-0.8)
[2024-08-10] MEDS: SODIUM ZIRCONIUM CYCLOSILICATE 5 GM PACKET PO ONE (10:54)
[2024-08-11 09:17] LABS: Albumin 2.8 g/dL (3.2-5.2); Albumin/Globulin Ratio 1.1 (1-3); Calcium 8.5 mg/dL (8.6-10.3); Creatinine, Serum 0.79 mg/dL (0.51-0.95); Globulin 2.5 g/dL (2-4); Potassium 4.6 mmol/L (3.5-5.0); Total Bilirubin 0.3 mg/dL (0.2-1.0); Total Protein 5.3 g/dL (6.4-8.9); eGFR CKD-EPI 75.1 (>60)
[2024-08-11] MEDS ORDERED: Morphine 2 MG/ML SYRINGE IV PRN (11:41)
[2024-08-11] MEDS ORDERED: LORazepam 2 mg VIAL 1 ml IV PUSH PRN (11:41)
[2024-08-11] MEDS ORDERED: Atropine 1% (ORAL/SL) 15 ML BTL SL PRN (11:41)
[2024-08-11] MEDS ORDERED: Ondansetron 4 mg VIAL 2 MG/ML 2 ml VIAL IV PRN (11:41)
[2024-08-11] MEDS: Dexamethasone IV 4 MG/ML VIAL 1 ml VIAL IV SLOW PU SCH (13:51)
[2024-08-11 17:27] VITALS: BP 96/60
[2024-08-13] MEDS ORDERED: Morphine ORAL CONCENTRATE 5 MG/0.25 ML ORAL.SYRIN SL PRN (11:10)
[2024-08-13] MEDS ORDERED: Ondansetron ODT 4 mg TAB 4 MG TAB SL PRN (11:12)
== END 2024-08-13 12:15 | DRG 871 ==
LOC: ED 15:58 → EDHOLD 15:58 → SUATTDRO 18:52 → MEDTELE 08-04 04:56 → SUATTDRO 08-04 15:42
PROVIDERS: ADMIT Internal Medicine; ATTEND Student in an Organized Health Care Education/Training Program